=== PATIENT | female | born 1940 | race Caucasian/White ===

== ENCOUNTER → 2017-01-05 | Outpatient (CLI) | payer MEDICARE, OTHER ==
[~2017-01-05] MED LIST: BACLOFEN; CRES10 PO; FEXO-10 PO; GABAPENTIN; LOSARTAN; SOTALOL; SYN75 PO
--- NOTE | 2017-01-06 15:18 | RADRPT ---
PROCEDURE: CT L-Spine. CLINICAL INDICATION: Left-sided sciatica. TECHNIQUE: A CT of the lumbar spine was performed on a GE 64-slice CT scanner utilizing high-resol ution thin section axial images from the thoracic lumbar junction through the lumbar sacral junction . One or more the following does reduction techniques were utilized: Automated exposure control, a djustment of the mA/ or kV according to patient's size, or use of iterative reconstruction technique . Sagittal and coronal and multiplanar reformatted images were made. The CTDIvol is 34.0 mGy and th e DLP is 1102.0 mGycm. COMPARISON: None. FINDINGS: There is a normal lordosis of the lumbar spine. Trace retrolisthesis of L2 on L3 is noted. There i s mild anterolisthesis at L4-5. No acute fracture is seen. Small areas of sclerosis are seen in th e right lateral aspect of the L3 vertebral body, L4 vertebral body, and posterior aspect of the L5 v ertebral body. These have the appearance is of small bone islands given their somewhat spiculated a ppearance. Postsurgical changes are seen in the posterior pelvis with an anastomotic sutures noted near the rectosigmoid junction. T12-L1: Moderate - severe disk space narrowing with vacuum disk phenomena is seen. There is a small Schmorl's node in the superior endplate of L1. A small osteophyte/disk complex together with facet arthropathy and ligamentum flavum hypertrophy results in mild central stenosis. There is mild left foraminal narrowing. L1-2: Moderate disk space narrowing is evident. Diffuse bulging of the posterior annulus together w ith facet arthropathy and ligamentum flavum hypertrophy results in minimal central stenosis with mil d bilateral foraminal narrowing. L2-3: Moderate disk space narrowing is evident. There is anterior spondylosis. Diffuse bulging of the posterior annulus together with facet arthropathy and ligamentum flavum hypertrophy results in m ild to moderate central stenosis with the mid transverse diameter measuring approximately 8 mm and A P diameter approximately 10 mm. Mild to moderate bilateral foraminal narrowing is evident. L3-4: Mild to moderate disk space narrowing is evident. Diffuse bulging of the posterior annulus to gether with facet arthropathy and ligamentum flavum hypertrophy results in moderate acquired central canal stenosis with the mid transverse diameter measuring just over 7 mm and AP diameter just over 8 mm. Facet arthropathy and foraminal osteophyte/disk complex is results in moderately severe right and moderate left foraminal narrowing. L4-5: Moderate disk space narrowing is evident. Diffuse bulging of the posterior annulus is seen. This together with severe facet arthropathy and ligamentum flavum hypertrophy results in severe acqu ired central canal stenosis with the diameter of the canal measuring just over 4 mm. Moderate - sev ere bilateral foraminal narrowing is noted. L5-S1: Moderate - severe disk space narrowing is evident and most pronounced along the lateral disk margins. Vacuum disk phenomena is seen. An osteophyte/disk complex together with facet arthropathy and ligamentum flavum hypertrophy results in mild central stenosis with the diameter of the canal m easuring approximate 10 mm. Foraminal osteophytes, lateral disk space narrowing, and facet arthropa thy results in severe bilateral foraminal narrowing, right greater than left. Impingement of the exi ting L5 nerve roots is suspected. IMPRESSION: 1. There is severe acquired central canal stenosis at L4-5. Grade I anterolisthesis is seen at thi s level secondary to marked facet arthropathy. 2. There is moderate acquired central canal stenosis at L3-4 and mild to moderate central stenosis at L2-3. 3. Multilevel foraminal stenosis, most severe at L5-S1, where there is suspected impingement of the exiting L5 nerve roots. RPTAT: PP .Sandra Mcdonald MD, Date Time Electronically viewed and signed by .Sandra Mcdonald MD, on 01/06/2017 15:18 .H/
== END | disposition home or self-care (01) ==
LOC: C/S 12:48
PROVIDERS: ATTEND Physical Medicine & Rehabilitation Sports Medicine
DX: M54.32 Sciatica, left side (principal); M48.06 Spinal stenosis, lumbar region
CPT/HCPCS: 72131